=== PATIENT | male | born 1965 | race Native Hawaiian/Other Pacific Islander ===

== ENCOUNTER 2016-06-14 06:18 | Day surgery (SDC) | payer MEDICARE ==
[2016-06-13 12:18] LABS: Basophils % (Auto) 0.6 % (0.0-1.8); Eosinophils % (Auto) 1.8 % (0.0-4.3); Hematocrit 27.2 % (35.5-45.6); Hemoglobin 8.5 gm/dl (11.8-15.2); Mean Corpuscular HGB Conc 31 % (32-34); Mean Corpuscular Hemoglobin 27 pg (28-32); Mean Corpuscular Volume 87 fl (84-94); Platelet Count 296 K/mm3 (140-440); Red Blood Count 3.13 M/mm3 (3.65-5.03); Red Cell Distribution Width 15.9 % (13.2-15.2); White Blood Count 13.4 K/mm3 (4.5-11.0)
--- NOTE | 2016-06-13 12:24 | Anesthesia Consultation ---
Anesthesia Consult and Med Hx Date of service: 06/13/16 - Airway Anesthetic Teeth Evaluation: Poor ROM Head & Neck: Inadequate Mental/Hyoid Distance: Inadequate Mallampati Class: Class III Intubation Access Assessment: Probably Good - Pulmonary Exam CTA: Yes - Cardiac Exam Cardiac Exam: RRR - Pre-Operative Health Status ASA Pre-Surgery Classification: ASA4 Proposed Anesthetic Plan: General, MAC - Pre-Anesthesia Comment Pre-Anesthesia Comments: Patient scheduled for AVF creation. Patient has h/o cardiomyopathy EF 25% (07/2014). HTN, CHF compensated, RA, gout, DM, obesity smoker. Patient was scheduled to repeat ECHO but has not followed up with his financial counselor. Patient needs cardiac clearance prior to proceeding. His cardiomyopathy is unstable and he lives a sedentary lifestyle. - Pulmonary Hx Smoking: Yes SOB: Yes Hx Sleep Apnea: No - Cardiovascular System Hx Hypertension: Yes (2005) Hx Coronary Artery Disease: No Hx Heart Attack/AMI: No - Central Nervous System Hx Neuromuscular Disorder: (Rheumatoid arthritis, chronic pain syndrome) Hx Seizures: Yes (d/t high fever as a child.) - Gastrointestinal Hx Gastroesophageal Reflux Disease: Yes - Endocrine Hx End Stage Renal Disease: Yes Hx Non-Insulin Dependent Diabetes: Yes - Hematic Hx Anemia: Yes - Other Systems Hx Obesity: Yes - Additional Comments Anesthesia Medical History Comments: NAC
[2016-06-13 12:28] LABS: INR 1.09 (0.87-1.13)
[2016-06-13 12:31] LABS: BUN/Creatinine Ratio 13.69; Calcium 7.7 mg/dL (8.4-10.2)
[2016-06-13 12:32] LABS: Chloride 106.1 mmol/L (98-107); Potassium 4.8 mmol/L (3.6-5.0)
[~2016-06-14 06:18] MED LIST: ANCEF/STERILE WATER 2 GM/20 ML 20 ML IV NR; NACL 0.9% 1000 ML 1,000 ML IV SCH; PEPCID IV NR; VERSED IV NR
[2016-06-14] MEDS ORDERED: NACL BACTERIOSTATIC INFILTRATI ONE (06:42)
[2016-06-14] MEDS ORDERED: NORCO 5/325 PO PRN (06:48)
[2016-06-14] MEDS ORDERED: DILAUDID IV PRN (06:48)
[2016-06-14] MEDS ORDERED: ZOFRAN IV PRN (06:48)
[2016-06-14] MEDS ORDERED: PEPCID IV NR (07:00)
[2016-06-14] MEDS ORDERED: VERSED IV NR (07:00)
[2016-06-14] MEDS ORDERED: XYLOCAINE MPF 2% ONE (07:14)
[2016-06-14] MEDS ORDERED: ZOFRAN ONE (07:14)
[2016-06-14] MEDS ORDERED: DILAUDID ONE (07:14)
[2016-06-14] MEDS ORDERED: DIPRIVAN 10 MG/ML IV ONE (07:14)
[2016-06-14] MEDS ORDERED: VERSED IV ONE ×3 (08:09→09:43)
[2016-06-14] MEDS ORDERED: HEPARIN 10,000 UNITS/10 ML ONE (08:11)
[2016-06-14] MEDS ORDERED: NACL 0.9% 500 ML IV ONE (08:15)
[2016-06-14] MEDS ORDERED: HEPARIN 10,000 UNITS/10 ML IV ONE (08:15)
[2016-06-14] MEDS ORDERED: XYLOCAINE 1%/ EPI 1:100,000 INFILTRATI ONE (08:39)
[2016-06-14] MEDS ORDERED: MARCAINE 0.5% INFILTRATI ONE (08:39)
[2016-06-14] MEDS ORDERED: BENADRYL ONE (10:12)
--- NOTE | 2016-06-14 11:27 | Operative Report ---
Operative Report Operative Report: Date of procedure: 06/14/2016 Pre-operative diagnosis: End-stage renal disease requiring permanent hemodialysis access Post-operative diagnosis: Same Procedure name(s): Creation of radial artery to cephalic vein fistula left arm Surgeon: Adonay Delgadillo MD Mold Polisher: None Anesthesia: Local Mac EBL: Minimal Specimen(s): None Complications: None Findings: Adequate caliber cephalic vein. Large side branch ligated. One area of mild stenosis in the distal forearm portion of the cephalic vein. Adequate thrill and bruit at the completion of the procedure. This point further dilatation of the stenotic area Procedure: Patient in the supine position with the left arm extended the entire extremity is prepped and draped using standard sterile technique. Duplex probe was used to identify and confirm that the cephalic vein in the forearm was adequate for AV fistula creation. That vessel was marked. A longitudinal incision was then made between the vein and the radial artery pulse on the lateral aspect of the distal forearm. I slightly undermined the skin and identified the cephalic vein and mobilized it proximally and distally. The incision was then deepened over the artery preserving the dorsal branch of the radial nerve. That vessel was mobilized for several centimeters and encircled using vessel loops. It was of good quality. The vein was divided distally and was dilated more and marked for rotation. The artery was then occluded and a longitudinal arteriotomy was then made in the anterior surface of the vessel. The vein was swung over and spatulated and an end-to-side anastomosis was then created using 6-0 Prolene suture in running technique. Prior to completion of the suture line antegrade and retrograde flushing was performed. The suture line was then completed and flow was established into the fistula from the retrograde artery. Subsequently from the inflow side. Flow was ultimately released back to the hand. There was an immediate thrill and bruit in the fistula. There was a large side branch that required ligation and this was carefully done preserving fistula flow. A second incision was made overlying this vessel and the side branch was ligated redirecting flow in the main channel. A soft thrill was easily palpable shelter up the arm. The thrill seemed to diminish as I began to close so the incision was then reopened and close inspection of the fistulous suggested an area of narrowing just distal in the forearm to the ligated side branch. Did use a side branch to pass a Ruben dilator distally and then that the thrill had returned. The side branch was re-ligated. The incision was hemostatic and thus was blocked using Marcaine 0.5% and then closed using 0 Vicryl subcutaneous for Monocryl subcuticular. Skin was sealed with Dermabond. Patient was then returned to the supine position extubated and returned to the recovery room in stable condition having tolerated the procedure well. Sponge and needle counts were correct.]
--- NOTE | 2016-06-14 11:33 | Short Stay Summary ---
Short Stay Documentation Date of service: 06/14/16 Narrative H&P: Admitted to the operating room as an outpatient for creation of a radiocephalic AV fistula in his left arm - History H&P: obtained from office - Allergies and Medications Current Medications: Allergies pollen extracts Allergy (Verified 06/13/16 09:41) Itching,Sneezing etc Home Medications Medication Instructions Recorded Confirmed Last Taken Type Acetaminophen [Tylenol Arthritis] 650 mg PO TID PRN 06/13/16 06/14/16 06/13/16 19:30 History Calcitriol [Calcitriol] 25 mcg PO QDAY 06/13/16 06/14/16 06/13/16 13:00 History Carvedilol [Coreg] 25 mg PO BID 06/13/16 06/14/16 06/14/16 05:00 History Febuxostat [Uloric] 80 mg PO QDAY 06/13/16 06/14/16 06/13/16 18:30 History Furosemide [Furosemide] 40 mg PO BID 06/13/16 06/14/16 06/14/16 05:00 History ISOSORBIDE MONOnitrate [Imdur ER] 30 mg PO DAILY 06/13/16 06/14/16 06/14/16 05: 00 History Iron 65 mg PO QDAY 06/13/16 06/14/16 06/13/16 09:00 History Simvastatin [Simvastatin] 10 mg PO QDAY 06/13/16 06/14/16 06/13/16 18:30 History Sodium Bicarbonate/Sodium Cit 10 gm PO BID 06/13/16 06/14/16 06/13/16 19:30 History [[place]ien-[place] Heartburn Tab Eff] glipiZIDE [Glipizide] 10 mg PO BID 06/13/16 06/14/16 06/13/16 18:30 History hydrALAZINE [Apresoline] 25 mg PO Q8HR 06/13/16 06/14/16 06/14/16 05:00 History Active Medications Acetaminophen/Hydrocodone Bitart ([place] 5/325) 2 each PO ONCE PRN PRN Reason: Pain, Moderate (4-6) Stop: 06/14/16 16:00 Famotidine (Pepcid) 20 mg IV PREOP NR Stop: 06/14/16 23:59 Last Admin: 06/14/16 07:09 Dose: 20 mg Hydromorphone HCl (Dilaudid) 0.25 mg IV Q10MIN PRN PRN Reason: Pain, Moderate (4-6) Stop: 06/14/16 18:00 Cefazolin Sodium (Ancef/Sterile Water 2 Gm/20 Ml) 20 mls @ 80 mls/hr IV PREOP NR PRN Reason: Protocol Stop: 06/14/16 23:00 Sodium Chloride (Nacl 0.9% 1000 Ml) 1,000 mls @ 42 mls/hr IV DIRECT DHRUV Last Admin: 06/14/16 06:50 Dose: 42 mls/hr Midazolam HCl (Versed) 2 mg IV PREOP NR Stop: 06/14/16 23:59 Last Admin: 06/14/16 07:12 Dose: 2 mg Ondansetron HCl (Zofran) 4 mg IV ONCE PRN PRN Reason: Nausea And Vomiting Stop: 06/14/16 16:00 - Brief post op/procedure progress note Date of procedure: 06/14/16 Procedure: Pre-operative diagnosis: End-stage renal disease requiring permanent hemodialysis access Post-operative diagnosis: Same Procedure name(s): Creation of radial artery to cephalic vein fistula left arm Surgeon: Adonay Delgadillo MD Grain Unloader Machine: None Anesthesia: Local Mac EBL: Minimal Specimen(s): None Complications: None Findings: Adequate caliber cephalic vein. Large side branch ligated. One area of mild stenosis in the distal forearm portion of the cephalic vein. Adequate thrill and bruit at the completion of the procedure. This point further dilatation of the stenotic area Procedure: Patient in the supine position with the left arm extended the entire extremity is prepped and draped using standard sterile technique. Duplex probe was used to identify and confirm that the cephalic vein in the forearm was adequate for AV fistula creation. That vessel was marked. A longitudinal incision was then made between the vein and the radial artery pulse on the lateral aspect of the distal forearm. I slightly undermined the skin and identified the cephalic vein and mobilized it proximally and distally. The incision was then deepened over the artery preserving the dorsal branch of the radial nerve. That vessel was mobilized for several centimeters and encircled using vessel loops. It was of good quality. The vein was divided distally and was dilated more and marked for rotation. The artery was then occluded and a longitudinal arteriotomy was then made in the anterior surface of the vessel. The vein was swung over and spatulated and an end-to-side anastomosis was then created using 6-0 Prolene suture in running technique. Prior to completion of the suture line antegrade and retrograde flushing was performed. The suture line was then completed and flow was established into the fistula from the retrograde artery. Subsequently from the inflow side. Flow was ultimately released back to the hand. There was an immediate thrill and bruit in the fistula. There was a large side branch that required ligation and this was carefully done preserving fistula flow. A second incision was made overlying this vessel and the side branch was ligated redirecting flow in the main channel. A soft thrill was easily palpable usp up the arm. The thrill seemed to diminish as I began to close so the incision was then reopened and close inspection of the fistulous suggested an area of narrowing just distal in the forearm to the ligated side branch. Did use a side branch to pass a Ruben dilator distally and then that the thrill had returned. The side branch was re-ligated. The incision was hemostatic and thus was blocked using Marcaine 0.5% and then closed using 0 Vicryl subcutaneous for Monocryl subcuticular. Skin was sealed with Dermabond. Patient was then returned to the supine position extubated and returned to the recovery room in stable condition having tolerated the procedure well. Sponge and needle counts were correct. - Hospital course Hospital course: Good Doppler signal in AV fistula with thrill and bruit. Overall postoperative recovery course benign - Disposition Condition at discharge: Stable Disposition: DISCHARGED TO HOME OR SELFCARE Short Stay Discharge Plan Activity: advance as tolerated Weight Bearing Status: Full Weight Bearing Diet: renal Wound: keep clean and dry Special Instructions: no heavy lifting Follow up with: SAMEER ABDI JR, MD [Primary Care Provider] - 7 Days ADONAY DELGADILLO MD [Staff Physician] - 14 Days Prescriptions: HYDROcodone/APAP 5-325 [[place] 5-325 mg TAB] 1 each PO ONCE PRN #30 tablet PRN Reason: Pain, Moderate (4-6)
[2016-06-14] MEDS ORDERED: NACL 0.9% 250ML ONE (12:00)
[2016-06-14] MEDS ORDERED: SODIUM BICARBONATE ONE (12:00)
--- NOTE | 2016-06-14 12:43 | Post Anesthesia Evaluation ---
- Post Anesthesia Evaluation Patient Participated: Yes Airway Patent: Yes Stable Respiratory Function: Yes Nausea/Vomiting: No Temp > 96.8F: Yes Pain Manageable: Yes Adequeate Hydration: Yes Anesthesia Complications: No Block Receding Appropriately: Not Applicable Patient on Ventilator: No
[2016-06-14 13:09] VITALS: BP 99/51
== END 2016-06-14 13:30 | disposition home or self-care (01) ==
LOC: OR 06:18
PROVIDERS: ATTEND Surgery Vascular Surgery
DX: E11.22 Type 2 diabetes mellitus with diabetic chronic kidney disease (principal); I13.2 Hypertensive heart and chronic kidney disease with heart failure and with stage 5 chronic kidney disease, or end stage renal disease; N18.6 End stage renal disease; I50.9 Heart failure, unspecified; J45.909 Unspecified asthma, uncomplicated; M10.9 Gout, unspecified; M19.90 Unspecified osteoarthritis, unspecified site; E78.00 Pure hypercholesterolemia, unspecified; F17.210 Nicotine dependence, cigarettes, uncomplicated; M06.9 Rheumatoid arthritis, unspecified; K21.9 Gastro-esophageal reflux disease without esophagitis; D64.9 Anemia, unspecified; E66.9 Obesity, unspecified; Z68.37 Body mass index [BMI] 37.0-37.9, adult; Z83.3 Family history of diabetes mellitus; Z82.49 Family history of ischemic heart disease and other diseases of the circulatory system
CPT/HCPCS: 36415; 36821; 80048; 82962; 85025; 85610; J0690; J1170; J1200; J1644; J2250; J2405; J2704; J7030; J7040; J7050

== ENCOUNTER 2016-06-17 18:44 | Emergency (ER) | payer MEDICARE ==
--- NOTE | 2016-06-17 19:51 | Emergency Department Report ---
ED Altered Mental Status HPI - General Stated Complaint: HYPOGLYCEMIA Time Seen by Provider: 06/17/16 19:33 Source: patient Mode of arrival: Ambulatory Limitations: No Limitations - History of Present Illness Initial Comments: 51-year-old male with a past medical history of chronic renal sufficiency, chronic back pain, arthritis, obesity, [id number] diabetes presents to the hospital complains of hypoglycemic episode. Patient takes glipizide 10 mg twice a day. He took his a.m. dose and ate breakfast however, he did not have lunch. Patient began feeling sweaty with chills and per family became disoriented. Accu-Chek was low on EMS arrival. Patient given a sandwich to eat an Accu-Chek improved to 120. Patient denies any preceding infectious symptoms and feels back to normal with exception of feeling cold. No pain reported. Patient recently had an AV fistula placed in the left forearm however , he is not currently on dialysis. Glucose in the 40's per EMS PMD: Dr. Colindres refuse collector: Dr. Cannon - Related Data Home Medications Medication Instructions Recorded Confirmed Last Taken Acetaminophen [Tylenol Arthritis] 650 mg PO TID PRN 06/13/16 06/14/16 06/13/16 19:30 Calcitriol 25 mcg PO QDAY 06/13/16 06/14/16 06/13/16 13:00 Carvedilol [Coreg] 25 mg PO BID 06/13/16 06/14/16 06/14/16 05:00 Febuxostat [Uloric] 80 mg PO QDAY 06/13/16 06/14/16 06/13/16 18:30 Furosemide 40 mg PO BID 06/13/16 06/14/16 06/14/16 05:00 ISOSORBIDE MONOnitrate [Imdur ER] 30 mg PO DAILY 06/13/16 06/14/16 06/14/16 05: 00 Iron 65 mg PO QDAY 06/13/16 06/14/16 06/13/16 09:00 Simvastatin 10 mg PO QDAY 06/13/16 06/14/16 06/13/16 18:30 Sodium Bicarbonate/Sodium Cit 10 gm PO BID 06/13/16 06/14/16 06/13/16 19:30 [Lien-[place] Heartburn Tab Eff] glipiZIDE [Glipizide] 10 mg PO BID 06/13/16 06/14/16 06/13/16 18:30 hydrALAZINE [Apresoline TAB] 25 mg PO Q8HR 06/13/16 06/14/16 06/14/16 05:00 Previous Rx's Medication Instructions Recorded Last Taken Type HYDROcodone/APAP 5-325 [[place] 1 each PO ONCE PRN #30 tablet 06/14/16 Unknown Rx 5-325 mg TAB] Allergies Allergy/AdvReac Type Severity Reaction Status Date / Time pollen extracts Allergy Itching,Sneezing Verified 06/13/16 09:41 etc ED Review of Systems ROS: Stated complaint: HYPOGLYCEMIA Other details as noted in HPI Comment: All other systems reviewed and negative Other: Constitutional: No fevers chills Eyes: No eye pain visual changes ENT: No ear pain or throat pain Neck: Denies pain Respiratory: Denies cough wheezing shortness of breath Cardiovascular: Denies chest pain, palpitations, syncope GI: Denies abdominal pain, nausea, vomiting, diarrhea : Denies dysuria Musculoskeletal: Denies back pain Skin: Denies rash, lesions, erythema Neurologic: Denies headache, numbness, weakness Psychiatric: Denies suicidal ideation, hallucinations ED Past Medical Hx - Past Medical History Hx Hypertension: Yes Hx Congestive Heart Failure: Yes Hx Diabetes: Yes Hx Arthritis: Yes (GOUT/RA) - Surgical History Additional Surgical History: I&D of right hand for previous episode of infection 1 year earlier - Social History Smoking Status: Never Smoker - Medications Home Medications: Home Medications Medication Instructions Recorded Confirmed Last Taken Type Acetaminophen [Tylenol Arthritis] 650 mg PO TID PRN 06/13/16 06/14/16 06/13/16 19:30 History Calcitriol 25 mcg PO QDAY 06/13/16 06/14/16 06/13/16 13:00 History Carvedilol [Coreg] 25 mg PO BID 06/13/16 06/14/16 06/14/16 05:00 History Febuxostat [Uloric] 80 mg PO QDAY 06/13/16 06/14/16 06/13/16 18:30 History Furosemide 40 mg PO BID 06/13/16 06/14/16 06/14/16 05:00 History ISOSORBIDE MONOnitrate [Imdur ER] 30 mg PO DAILY 06/13/16 06/14/16 06/14/16 05: 00 History Iron 65 mg PO QDAY 06/13/16 06/14/16 06/13/16 09:00 History Simvastatin 10 mg PO QDAY 06/13/16 06/14/16 06/13/16 18:30 History Sodium Bicarbonate/Sodium Cit 10 gm PO BID 06/13/16 06/14/16 06/13/16 19:30 History [Lien-[place] Heartburn Tab Eff] glipiZIDE [Glipizide] 10 mg PO BID 06/13/16 06/14/16 06/13/16 18:30 History hydrALAZINE [Apresoline TAB] 25 mg PO Q8HR 06/13/16 06/14/16 06/14/16 05:00 History HYDROcodone/APAP 5-325 [[place] 1 each PO ONCE PRN #30 tablet 06/14/16 Unknown Rx 5-325 mg TAB] ED Physical Exam - Other Other exam information: General: No limitations, patient is alert in no acute distress Head exam: Atraumatic, normocephalic Eyes exam: Normal appearance, pupils equal reactive to light, extraocular movements intact ENT: Moist mucous membrane, normal oropharynx Neck exam: Normal inspection, full range of motion, no meningismus nontender Respiratory exam: Clear to auscultation bilateral, no wheezes, rales, crackles Cardiovascular: Normal rate and rhythm, normal heart sounds Abdomen: Soft, nondistended, and nontender, with normal bowel sounds, no rebound, or guarding Extremity: Full range of motion normal inspection no deformity. Left forearm/ wrist AV fistula Back: Normal Inspection, full range of motion, no tenderness Neurologic: Alert, oriented x3, cranial nerves intact, no motor or sensory deficit Psychiatric: normal affect, normal mood Skin: Warm, dry, intact ED Course Vital Signs 06/17/16 19:00 Temperature 97.3 F L Pulse Rate 77 Respiratory 18 Rate Blood Pressure 154/69 [Left] O2 Sat by Pulse 100 Oximetry - Reevaluation(s) Reevaluation #1: 06/17/16 21:29 9pm acuchek in the 80's. Pt was encourged to eat more food. Will recheck at 10pm - Consultations Consultation #1: 06/17/16 22:53 case d/w Dr De Guzman, rec bicar water. I discussed this with pt he is apparently on a bicarb pill bid therefore pt will be instructed to continue and take his evening dose of bicarb - Lab Data Result diagrams: 06/17/16 19:58 06/17/16 19:58 Lab Results 06/17/16 06/17/16 06/17/16 Range/Units 19:58 19:58 20:57 WBC 16.9 H (4.5-11.0) K/mm3 RBC 3.12 L (3.65-5.03) M/mm3 Hgb 8.6 L (11.8-15.2) gm/dl Hct 26.7 L (35.5-45.6) % MCV 86 (84-94) fl MCH 28 (28-32) pg MCHC 32 (32-34) % RDW 15.8 H (13.2-15.2) % Plt Count 277 (140-440) K/mm3 Add Manual Diff Complete Total Counted 100 Seg Neutrophils % Cloud Physicist Seg Neuts % (Manual) 94.0 H (40.0-70.0) % Band Neutrophils % 0 % Lymphocytes % (Manual) 3.0 L (13.4-35.0) % Reactive Lymphs % (Man) 0 % Monocytes % (Manual) 2.0 (0.0-7.3) % Eosinophils % (Manual) 1.0 (0.0-4.3) % Basophils % (Manual) 0 (0.0-1.8) % Metamyelocytes % 0 % Myelocytes % 0 % Promyelocytes % 0 % Blast Cells % 0 % Nucleated RBC % Not Reportable Seg Neutrophils # Man 15.9 H (1.8-7.7) K/mm3 Band Neutrophils # 0.0 K/mm3 Lymphocytes # (Manual) 0.5 L (1.2-5.4) K/mm3 Abs React Lymphs (Man) 0.0 K/mm3 Monocytes # (Manual) 0.3 (0.0-0.8) K/mm3 Eosinophils # (Manual) 0.2 (0.0-0.4) K/mm3 Basophils # (Manual) 0.0 (0.0-0.1) K/mm3 Metamyelocytes # 0.0 K/mm3 Myelocytes # 0.0 K/mm3 Promyelocytes # 0.0 K/mm3 Blast Cells # 0.0 K/mm3 WBC Morphology Not Reportable Hypersegmented Neuts Not Reportable Hyposegmented Neuts Not Reportable Hypogranular Neuts Not Reportable Smudge Cells Not Reportable Toxic Granulation Not Reportable Toxic Vacuolation Not Reportable Dohle Bodies Not Reportable Pelger-Huet Anomaly Not Reportable Margarita Rods Not Reportable Platelet Estimate Appears normal Clumped Platelets Not Reportable Plt Clumps, EDTA Not Reportable Large Platelets Not Reportable Giant Platelets Not Reportable Platelet Satelliting Not Reportable Plt Morphology Comment Not Reportable RBC Morphology Not Reportable Dimorphic RBCs Not Reportable Polychromasia Not Reportable Hypochromasia Not Reportable Poikilocytosis Not Reportable Anisocytosis Few Microcytosis Not Reportable Macrocytosis Not Reportable Spherocytes Not Reportable Pappenheimer Bodies Not Reportable Sickle Cells Not Reportable Target Cells Not Reportable Tear Drop Cells Rare Ovalocytes Not Reportable Stomatocytes Few Helmet Cells Not Reportable Dupont-[place] Bodies Not Reportable [place] Rings Not Reportable [place] Cells Not Reportable Bite Cells Not Reportable Crenated Cell Not Reportable Elliptocytes Not Reportable Acanthocytes (Spur) Not Reportable Rouleaux Not Reportable Hemoglobin C Crystals Not Reportable Schistocytes Not Reportable Malaria parasites Not Reportable [place] Bodies Not Reportable Hem Pathologist Commnt No Sodium 143 (137-145) mmol/L Potassium 5.0 (3.6-5.0) mmol/L Chloride 105.4 (98-107) mmol/L Carbon Dioxide 17 L (22-30) mmol/L Anion Gap 26 mmol/L BUN 62 H (9-20) mg/dL Creatinine 5.0 H (0.8-1.5) mg/dL Estimated GFR 12 ml/min BUN/Creatinine Ratio 12.40 % Glucose 87 (75-100) mg/dL POC Glucose (70-105) Calcium 7.8 L (8.4-10.2) mg/dL Urine Color Straw (Yellow) Urine Turbidity Clear (Clear) Urine pH 5.0 (5.0-7.0) Ur Specific [place] 1.011 (1.003-1.030) Urine Protein 100 mg/dl (Negative) mg/dL Urine Glucose (UA) Neg (Negative) mg/dL Urine Ketones Neg (Negative) mg/dL Urine Blood Neg (Negative) Urine Nitrite Neg (Negative) Urine Bilirubin Neg (Negative) Urine Urobilinogen < 2.0 (<2.0) mg/dL Ur Leukocyte Esterase Neg (Negative) Urine WBC (Auto) 2.0 (0.0-6.0) /HPF Urine RBC (Auto) 1.0 (0.0-6.0) /HPF Urine Bacteria (Auto) 1+ (Negative) /HPF Urine Mucus Few /HPF 06/17/16 06/17/16 Range/Units 21:07 22:23 WBC (4.5-11.0) K/mm3 RBC (3.65-5.03) M/mm3 Hgb (11.8-15.2) gm/dl Hct (35.5-45.6) % MCV (84-94) fl MCH (28-32) pg MCHC (32-34) % RDW (13.2-15.2) % Plt Count (140-440) K/mm3 Add Manual Diff Total Counted Seg Neutrophils % Seg Neuts % (Manual) (40.0-70.0) % Band Neutrophils % % Lymphocytes % (Manual) (13.4-35.0) % Reactive Lymphs % (Man) % Monocytes % (Manual) (0.0-7.3) % Eosinophils % (Manual) (0.0-4.3) % Basophils % (Manual) (0.0-1.8) % Metamyelocytes % % Myelocytes % % Promyelocytes % % Blast Cells % % Nucleated RBC % Seg Neutrophils # Man (1.8-7.7) K/mm3 Band Neutrophils # K/mm3 Lymphocytes # (Manual) (1.2-5.4) K/mm3 Abs React Lymphs (Man) K/mm3 Monocytes # (Manual) (0.0-0.8) K/mm3 Eosinophils # (Manual) (0.0-0.4) K/mm3 Basophils # (Manual) (0.0-0.1) K/mm3 Metamyelocytes # K/mm3 Myelocytes # K/mm3 Promyelocytes # K/mm3 Blast Cells # K/mm3 WBC Morphology Hypersegmented Neuts Hyposegmented Neuts Hypogranular Neuts Smudge Cells Toxic Granulation Toxic Vacuolation Dohle Bodies Pelger-Huet Anomaly Margarita Rods Platelet Estimate Clumped Platelets Plt Clumps, EDTA Large Platelets Giant Platelets Platelet Satelliting Plt Morphology Comment RBC Morphology Dimorphic RBCs Polychromasia Hypochromasia Poikilocytosis Anisocytosis Microcytosis Macrocytosis Spherocytes Pappenheimer Bodies Sickle Cells Target Cells Tear Drop Cells Ovalocytes Stomatocytes Helmet Cells Dupont-[place] Bodies [place] Rings [place] Cells Bite Cells Crenated Cell Elliptocytes Acanthocytes (Spur) Rouleaux Hemoglobin C Crystals Schistocytes Malaria parasites Carson Bodies Hem Pathologist Commnt Sodium (137-145) mmol/L Potassium (3.6-5.0) mmol/L Chloride (98-107) mmol/L Carbon Dioxide (22-30) mmol/L Anion Gap mmol/L BUN (9-20) mg/dL Creatinine (0.8-1.5) mg/dL Estimated GFR ml/min BUN/Creatinine Ratio % Glucose (75-100) mg/dL POC Glucose 80 84 (70-105) Calcium (8.4-10.2) mg/dL Urine Color (Yellow) Urine Turbidity (Clear) Urine pH (5.0-7.0) Ur Specific [place] (1.003-1.030) Urine Protein (Negative) mg/dL Urine Glucose (UA) (Negative) mg/dL Urine Ketones (Negative) mg/dL Urine Blood (Negative) Urine Nitrite (Negative) Urine Bilirubin (Negative) Urine Urobilinogen (<2.0) mg/dL Ur Leukocyte Esterase (Negative) Urine WBC (Auto) (0.0-6.0) /HPF Urine RBC (Auto) (0.0-6.0) /HPF Urine Bacteria (Auto) (Negative) /HPF Urine Mucus /HPF - Medical Decision Making Patient's hyperglycemic episode likely related to taking his glipizide and not eating appropriately throughout the day. Glucose remained stable in the ED. Patient tolerated food intake and is at baseline mental status. Patient has a leukocytosis likely stress induced. Patient was instructed to hold his evening glipizide and take his bicarbonate as prescribed. Family informed to monitor patient very closely throughout the night and recheck his local every hourly the next 3 hours and to make sure he eats again when he gets home. - Differential Diagnosis hypoglycemia, fasting, infection Critical Care Time: No Critical care attestation.: If time is entered above; I have spent that time in minutes in the direct care of this critically ill patient, excluding procedure time. ED Disposition Clinical Impression: Hypoglycemia secondary to sulfonylurea, Chronic renal insufficiency, Chronic anemia, Metabolic acidosis Disposition: DISCHARGED TO HOME OR SELFCARE Is pt being admited?: No Does the pt Need Aspirin: No Condition: Stable Instructions: Diabetic Hypoglycemia (ED) Additional Instructions: Hold your evening dose of glipizide. Taking other medications is prescribed including a sodium bicarbonate tonight. Eat again when you go home and continue to monitor to your sugar every hour for the next 3 hours. Return if symptoms worsen. Referrals: PRIMARY CARE, [Primary Care Provider] - 3-5 Days Time of Disposition: 22:57
[2016-06-17 20:13] LABS: Hematocrit 26.7 % (35.5-45.6); Hemoglobin 8.6 gm/dl (11.8-15.2); Mean Corpuscular HGB Conc 32 % (32-34); Mean Corpuscular Hemoglobin 28 pg (28-32); Mean Corpuscular Volume 86 fl (84-94); Platelet Count 277 K/mm3 (140-440); Red Blood Count 3.12 M/mm3 (3.65-5.03); Red Cell Distribution Width 15.8 % (13.2-15.2); White Blood Count 16.9 K/mm3 (4.5-11.0)
[2016-06-17 20:30] LABS: BUN/Creatinine Ratio 12.4; Calcium 7.8 mg/dL (8.4-10.2); Chloride 105.4 mmol/L (98-107)
[2016-06-17 20:42] LABS: Blastocytes % (Manual) 0 %
[2016-06-17 20:43] LABS: Basophils % (Manual) 0 % (0.0-1.8)
[2016-06-17 20:44] LABS: Stomatocytes Few; Tear Drop Cells Rare
[2016-06-17 20:45] LABS: Anisocytosis Few; Diff Status Complete
[2016-06-17 21:13] VITALS: BP 154/69
[2016-06-17 21:13] LABS: Bacteria,Urine 1+ /HPF (Negative); Bilirubin,Urine NEG (Negative); Blood,Urine NEG (Negative); Ketones,Urine NEG (Negative); Leukocyte Esterase,Urine NEG (Negative); Mucus,Urine FEW /HPF; Nitrite,Urine NEG (Negative); Urobilinogen,Urine < 2.0 mg/dL (<2.0)
== END 2016-06-17 23:00 | disposition home or self-care (01) ==
LOC: ED 18:44
DX: E11.22 Type 2 diabetes mellitus with diabetic chronic kidney disease (principal); E11.649 Type 2 diabetes mellitus with hypoglycemia without coma; I12.9 Hypertensive chronic kidney disease with stage 1 through stage 4 chronic kidney disease, or unspecified chronic kidney disease; N18.9 Chronic kidney disease, unspecified; D64.9 Anemia, unspecified; E87.2 Acidosis; M19.90 Unspecified osteoarthritis, unspecified site; I50.9 Heart failure, unspecified; Z88.9 Allergy status to unspecified drugs, medicaments and biological substances
CPT/HCPCS: 36415; 80048; 81001; 82962; 85007; 85025; 99283